=== PATIENT | male | born 1960 | race Caucasian/White ===

== ENCOUNTER 2020-11-19 10:13 | Inpatient (IN) | payer OTHER ==
[~2020-11-19] VITALS: Ht 152.4 cm; Wt 89.5 kg
[2020-11-19 11:59] LABS: BASOPHILS % (AUTO) 1.1 % (0.0-2.0); EOSINOPHILS % (AUTO) 0.8 % (1.0-6.0); HEMATOCRIT 37.8 % (41-53); HEMOGLOBIN 12.5 g/dL (13.5-17.5); LYMPHOCYTES # (AUTO) 0.8 K/uL (1.0-4.8); LYMPHOCYTES % (AUTO) 13.7 % (22.0-44.0); MEAN CORPUSCULAR HEMOGLOBIN 29.9 pg (26.0-34.0); MEAN CORPUSCULAR HGB CONC 33.2 G/dL (31.0-37.0); MEAN CORPUSCULAR VOLUME 90 fL (80-100); MONOCYTES # (AUTO) 0.4 K/uL (0.1-1.0); MONOCYTES % (AUTO) 6.2 % (2.0-9.0); NEUTROPHILS # (AUTO) 4.7 K/uL (1.8-7.7); NEUTROPHILS % (AUTO) 78.2 % (40.0-70.0); PLATELET COUNT (AUTO) 295 K/uL (150-450); RED BLOOD CELL COUNT(AUTO) 4.19 MIL/uL (4.50-5.90); RED CELL DISTRIBUTION WIDTH 13.4 % (11.5-14.5)
[2020-11-19 12:09] LABS: ANION GAP 9 mmol/L (8-16); CALCIUM, TOTAL 8.7 mg/dL (8.8-10.5); CARBON DIOXIDE 24 mmol/L (22-29); CHLORIDE 106 mmol/L (98-107); CREATININE 1.22 mg/dL (0.60-1.30); GLOMERULAR FILTR. RATE CALC > 60 mL/min (>60); GLUCOSE,RANDOM 103 mg/dL (70-110); SODIUM SERUM 139 mmol/L (136-145); UREA NITROGEN, BLOOD 20 mg/dL (7-18)
[2020-11-19 12:14] LABS: ALANINE AMINOTRANSFERASE 21 U/L (12-78); ALBUMIN 3.6 g/dL (3.4-5.0); ALKALINE PHOSPHATASE 84 U/L (46-116); ASPARTATE AMINOTRANSFERASE 13 U/L (15-37); BILIRUBIN,TOTAL 0.2 mg/dL (0.1-1.0); TOTAL PROTEIN, SERUM 6.5 g/dL (6.4-8.2)
[2020-11-19] MEDS ORDERED: FINA-27 PO (12:43)
[2020-11-19] MEDS ORDERED: LISI-894 PO (12:43)
[2020-11-19] MEDS ORDERED: DULO20CA27 PO (12:43)
[2020-11-19] MEDS ORDERED: BUSP15 PO (12:43)
[2020-11-19] MEDS ORDERED: TAMS-13 PO (12:43)
[2020-11-19] MEDS ORDERED: DICY20TA2 PO (12:43)
[2020-11-19] MEDS ORDERED: AMLO-258 PO (12:43)
[2020-11-19] MEDS ORDERED: OMEP20 PO (12:43)
[2020-11-19] MEDS ORDERED: ACETAMINOPHEN 325 MG TABLET PO PRN (13:00)
[2020-11-19] MEDS ORDERED: BISACODYL 10 MG RECTAL RECTAL SUPPOSITORY PR PRN (13:00)
[2020-11-19] MEDS ORDERED: 0.9% SODIUM CHLORIDE 10 ML SYRINGE IVP PRN (13:00)
[2020-11-19] MEDS ORDERED: IPRATROPIUM BROMIDE 0.5 MG/2.5 ML NEB SOLUTION NEB PRN (13:00)
[2020-11-19] MEDS ORDERED: ALBUTEROL SULFATE 2.5 MG/0.5 ML NEB SOLUTION NEB PRN (13:00)
[2020-11-19] MEDS ORDERED: MAGNESIUM HYDROXIDE SUSPENSION 30 ML UDCUP PO PRN (13:00)
[2020-11-19] MEDS ORDERED: DOCUSATE SODIUM 100 MG CAPSULE PO PRN (13:00)
[2020-11-19] MEDS ORDERED: ONDANSETRON HCL 4 MG/2 ML VIAL IVP PRN (13:00)
[2020-11-19] MEDS: HEPARIN SODIUM,PORCINE 5,000 UNITS/ML VIAL SQ SCH ×2 (16:41→23:29)
[2020-11-19] MEDS: DICYCLOMINE HCL 20 MG TABLET PO SCH ×2 (16:41→20:36)
[2020-11-19 16:49] LABS: COVID AG,FIA SOURCE NASOPHARYNGEAL
[2020-11-19 17:01] VITALS: BP 131/69
[2020-11-19 19:40] VITALS: BP 125/72
[2020-11-19] MEDS: BusPIRone HCL 15 MG TABLET PO SCH (20:36)
[2020-11-19] MEDS: OMEPRAZOLE 20 MG CAPSULE PO SCH (20:36)
[2020-11-19] MEDS: METOPROLOL TARTRATE 25 MG TABLET PO SCH (20:36)
[2020-11-19] MEDS: LISINOPRIL 20 MG TABLET PO SCH (20:36)
[2020-11-19 23:54] VITALS: BP 127/82
[2020-11-20] VITALS (7 sets, daily range): BP systolic 119–143; BP diastolic 73–86
[2020-11-20 06:33] LABS: BASOPHILS % (AUTO) 1.5 % (0.0-2.0); EOSINOPHILS % (AUTO) 4.2 % (1.0-6.0); HEMATOCRIT 38.9 % (41-53); HEMOGLOBIN 13.1 g/dL (13.5-17.5); LYMPHOCYTES # (AUTO) 1.3 K/uL (1.0-4.8); LYMPHOCYTES % (AUTO) 34.1 % (22.0-44.0); MEAN CORPUSCULAR HEMOGLOBIN 30.3 pg (26.0-34.0); MEAN CORPUSCULAR HGB CONC 33.7 G/dL (31.0-37.0); MEAN CORPUSCULAR VOLUME 90 fL (80-100); MONOCYTES # (AUTO) 0.4 K/uL (0.1-1.0); NEUTROPHILS % (AUTO) 50.2 % (40.0-70.0); PLATELET COUNT (AUTO) 295 K/uL (150-450); RED BLOOD CELL COUNT(AUTO) 4.32 MIL/uL (4.50-5.90); RED CELL DISTRIBUTION WIDTH 13.5 % (11.5-14.5)
[2020-11-20 06:56] LABS: ALANINE AMINOTRANSFERASE 27 U/L (12-78); ALBUMIN 3.4 g/dL (3.4-5.0); ALKALINE PHOSPHATASE 84 U/L (46-116); ANION GAP 5 mmol/L (8-16); ASPARTATE AMINOTRANSFERASE 14 U/L (15-37); BILIRUBIN,TOTAL 0.3 mg/dL (0.1-1.0); CALCIUM, TOTAL 8.7 mg/dL (8.8-10.5); CARBON DIOXIDE 26 mmol/L (22-29); CHLORIDE 108 mmol/L (98-107); CHOL/HDL RATIO 3.4 (4.2-7.3); CHOLESTEROL 208 mg/dL (131-200); CREATININE 0.93 mg/dL (0.60-1.30); GLOMERULAR FILTR. RATE CALC > 60 mL/min (>60); GLUCOSE,RANDOM 91 mg/dL (70-110); HDL CHOLESTEROL 61 mg/dL (40-60); LDL CHOL (CALC.) 129 mg/dL (0-130); POTASSIUM 4.3 mmol/L (3.5-5.1); SODIUM SERUM 139 mmol/L (136-145); TOTAL PROTEIN, SERUM 6.3 g/dL (6.4-8.2); TRIGLYCERIDES 90 mg/dL (15-150); UREA NITROGEN, BLOOD 16 mg/dL (7-18)
[2020-11-20] MEDS: HEPARIN SODIUM,PORCINE 5,000 UNITS/ML VIAL SQ SCH ×3 (08:00→23:38)
[2020-11-20] MEDS: DICYCLOMINE HCL 20 MG TABLET PO SCH ×4 (08:08→20:27)
[2020-11-20] MEDS: BusPIRone HCL 15 MG TABLET PO SCH ×2 (08:08→20:28)
[2020-11-20] MEDS: OMEPRAZOLE 20 MG CAPSULE PO SCH ×2 (08:08→20:28)
[2020-11-20] MEDS: TAMSULOSIN HCL 0.4 MG CAPSULE PO SCH (08:09)
[2020-11-20] MEDS: ASPIRIN 81 MG CHEWABLE TABLET PO SCH (08:09)
[2020-11-20] MEDS: FINASTERIDE 5 MG TABLET PO SCH (08:12)
[2020-11-20] MEDS: DULoxetine HCL 20 MG CAPSULE PO SCH (08:12)
[2020-11-20] MEDS: METOPROLOL TARTRATE 25 MG TABLET PO SCH ×2 (09:00→20:28)
[2020-11-20] MEDS ORDERED: SESTAMIBI TC99M/UD ISOTOPE 1 EA INJ INJ ONE ×2 (10:15→12:30)
[2020-11-20] MEDS ORDERED: REGADENOSON 0.4 MG/5 ML PF SYRINGE IVP ONE (13:30)
[2020-11-20] MEDS: LISINOPRIL 20 MG TABLET PO SCH (20:27)
[2020-11-21 00:24] VITALS: BP 145/77
[2020-11-21 04:04] VITALS: BP 129/79
[2020-11-21 07:21] VITALS: BP 139/92
[2020-11-21] MEDS: DULoxetine HCL 20 MG CAPSULE PO SCH (08:06)
[2020-11-21] MEDS: TAMSULOSIN HCL 0.4 MG CAPSULE PO SCH (08:06)
[2020-11-21] MEDS: BusPIRone HCL 15 MG TABLET PO SCH (08:06)
[2020-11-21] MEDS: METOPROLOL TARTRATE 25 MG TABLET PO SCH (08:07)
[2020-11-21] MEDS: HEPARIN SODIUM,PORCINE 5,000 UNITS/ML VIAL SQ SCH ×2 (08:07→16:29)
[2020-11-21] MEDS: FINASTERIDE 5 MG TABLET PO SCH (08:07)
[2020-11-21] MEDS: OMEPRAZOLE 20 MG CAPSULE PO SCH (08:07)
[2020-11-21] MEDS: ASPIRIN 81 MG CHEWABLE TABLET PO SCH (08:15)
[2020-11-21] MEDS: DICYCLOMINE HCL 20 MG TABLET PO SCH ×3 (09:00→16:29)
[2020-11-21 11:06] VITALS: BP 132/87
[2020-11-21] MEDS ORDERED: METO25 PO ×2 (14:41→14:43)
[2020-11-21 16:28] VITALS: BP 142/79
[2020-11-21] MEDS ORDERED: ATOR10TA84 PO (17:06)
== END 2020-11-21 17:30 | DRG 311 ==
LOC: EMS 10:13 → 5S 15:42
PROVIDERS: ADMIT Internal Medicine; ATTEND Internal Medicine
DX: I20.0 Unstable angina (principal); K21.9 Gastro-esophageal reflux disease without esophagitis; F41.9 Anxiety disorder, unspecified; F32.9 Major depressive disorder, single episode, unspecified; I11.9 Hypertensive heart disease without heart failure; Z79.899 Other long term (current) drug therapy; Z82.49 Family history of ischemic heart disease and other diseases of the circulatory system; Z20.822 Contact with and (suspected) exposure to COVID-19
CPT/HCPCS: 71045; 78452; 80053; 80061; 84484; 85025; 93005; 93017; 93306; 99285; A9500; J1644; J2405; 36415-L1; 36415-TC